=== PATIENT | female | born 1965 | race Caucasian/White ===

== ENCOUNTER 2016-11-14 08:46 | Day surgery (SDC) | payer MEDICAID ==
[2016-11-14] MEDS ORDERED: HYDROCODONE-APA1 TAB PO (10:44)
[2016-11-14] MEDS ORDERED: OMEPRAZOLE40 MG PO (10:44)
[2016-11-14] MEDS ORDERED: NEURONTIN 300300 MG PO (10:44)
[2016-11-14] MEDS ORDERED: EFFEXOR75 MG PO (10:45)
[2016-11-14] MEDS ORDERED: PRINIVIL10 MG PO (10:45)
[2016-11-14] MEDS ORDERED: PROVENTIL HFA6.7 GM INH (10:46)
[2016-11-14 10:49] VITALS: BP 123/74; BMI 26.0
[2016-11-14 11:47] LABS: HEMATOCRIT 36.8 % (36.0-48.0); HEMOGLOBIN 11.8 g/dL (12-16); MCH 30.6 pg (26.0-34.0); MCHC 32.1 g/dL (31.0-37.0); MCV 95.3 fL (80.0-100.0); MEAN PLATELET VOLUME 9.7 fL (7.4-10.4); RBC 3.86 10x6/uL (4.00-5.40); RDW 13.2 % (11.5-14.5); WBC 4.4 10x3/uL (4.8-10.8)
[2016-11-14 12:00] LABS: AMORPHOUS SEDIMENT <1+ /lpf (NONE SEEN); APPEARANCE HAZY (CLEAR); BILIRUBIN NEGATIVE (NEGATIVE); COLOR YELLOW (YELLOW); GLUCOSE NEGATIVE (NEGATIVE); KETONE NEGATIVE (NEGATIVE); LEUKOCYTE ESTERASE TRACE (NEGATIVE); NITRITE NEGATIVE (NEGATIVE); PROTEIN TRACE mg/dL (NEGATIVE); SPECIFIC GRAVITY 1.015 (1.005-1.020); UROBILINOGEN NORMAL (NORMAL)
[2016-11-14 12:01] LABS: WHITE CELLS - URINE 0-5 /hpf (0-5)
[2016-11-14 12:03] LABS: EPITHELIAL CELLS 0-5 /hpf (0-5); RED CELLS - URINE 0-5 /hpf (0-5)
[2016-11-14 12:04] LABS: BACTERIA FEW /hpf (NONE SEEN)
[2016-11-14 12:15] LABS: ALBUMIN 3.8 g/dL (3.4-5.0); ALKALINE PHOSPHATASE 78 U/L (46-116); ALT (SGPT) 24 U/L (10-68); BILIRUBIN - TOTAL 0.28 mg/dL (0.2-1.3); CALC OSMOLALITY 284 mosm/kg (275-300); CALCIUM 8.9 mg/dL (8.5-10.1); CARBON DIOXIDE 28.4 mmol/L (21.0-32.0); CHLORIDE - SERUM 105 mmol/L (98-107); CREATININE - SERUM 0.7 mg/dL (0.6-1.3); GLUCOSE 93 mg/dL (74-106); POTASSIUM - SERUM 4.2 mmol/L (3.5-5.1); PROTEIN - SERUM 6.9 g/dL (6.4-8.2); SODIUM 142 mmol/L (136-145); UREA NITROGEN 17 mg/dL (7-18); eGFR NON AFRICAN AMERICAN > 90 mL/min (90-120)
[2016-11-14 12:23] LABS: APTT 27.4 SECONDS (22.8-39.4); INR 0.86 (0.85-1.17); PROTIME 11.6 SECONDS (11.6-15.0)
--- NOTE | 2016-11-14 13:06 | NUR ---
OPA IN AIRAY ON ADMIT TO [facility]
--- NOTE | 2016-11-14 14:23 | NUR ---
1420-ESCORTED TO PERSONAL CAR, LEFT WITH FAMILY MEMBER DRIVING CAR.
--- NOTE | 2016-12-01 13:10 | OP ---
PATIENT NAME: TARIQ VALLES MEDICAL RECORD: [id number] :65 LOCATION:[facility] ADMISSION DATE: SURGEON: MARTELL ESCOBAR MD DATE OF OPERATION: 11/14/2016 PREOPERATIVE DIAGNOSES: Hoarseness, right true vocal cord lesion. SURGEON: Martell Escobar MD ANESTHESIA: General orotracheal. BLOOD LOSS: Less than 1 cc. SPECIMENS: Right true vocal cord lesion. COMPLICATIONS: None. DISPOSITION: Recovery stable. DESCRIPTION OF PROCEDURE: She is brought to the operating room and placed in supine position, sedated and intubated by anesthesia. The table was turned 90 degrees. A head drape was applied and she was positioned for endoscopy. She did not have any upper teeth. A plastic tooth guard was used. A Kleinsasser laryngoscope was used to examine the oropharynx, hypopharynx, vallecula, base of tongue, post-cricoid area and pyriform, there is no lesions were seen. The supraglottic larynx was all normal as well. She had obvious large lesion on the right true cord. The laryngoscope was placed into position, it was suspended on a Lewy and the microscope was brought in with a 400-mm lens and the area was examined. She had big floppy polypoid partially cystic lesion involving the right true cord almost the entire right true cord. The left cord could not be visualized, but with a suction, I was able to push it below the other cord or lift it up and the lesion went almost to the anterior commissure within about 1 mm and posterior all the way to the vocal process arytenoid with a cup forceps, grasped it and medialized the lesion and an upbiting scissors started posteriorly. I dissected about half of the lesion free from the cord. This allowed a little bit more traction posteriorly and then focused on the anterior commissure and just used some straight biting scissors and to divide it anteriorly about 1 mm behind the anterior commissure and then dissected off from anterior to posterior from there. It was removed and sent the specimen intact. There was no rupture of any cyst and an Afrin pledget was placed on the cord, looked really nice afterwards. Before and after pictures were taken and placed in the chart, Afrin pledget was removed. Counts were correct. The laryngoscope was taken out of suspension and the laryngoscope was removed and the plastic tooth guard was removed. She was awakened, extubated, and transported to recovery in good condition. No complications. TRANSINT:[id number] Voice Confirmation ID: [id number] DOCUMENT ID: [id number] OPERATIVE REPORT [id number] TARIQ VALLES ERIC MD at 1310 CC: [id number] DICTATION DATE: 11/14/16 1252 ACCOUNT RECEIVABLE CLERK: 11/14/16 2207 [facility] 11/14/[address] [address]
--- NOTE | 2016-12-01 13:10 | HP ---
PATIENT: TARIQ VALLES MEDICAL RECORD: [id number] ACCOUNT: [id number] LOCATION:[facility] : 65 ADMISSION DATE: 11/14/16 HISTORY AND PHYSICAL EXAMINATION Preoperative History and Physical HISTORY OF PRESENT ILLNESS: Ms. Valles is a 51-year-old female, who had an EGD, which she was noticed a large cyst-like lesion. She has had significant hoarseness for a long time. She was found on exam to have a large obstructing cyst on the right true vocal cord. She is being admitted for laryngoscopy and excision of the cyst. PAST MEDICAL HISTORY: Includes hypertension, reactive airway disease and reflux. PAST SURGICAL HISTORY: Includes back surgery, neck surgery, and tonsillectomy. SOCIAL HISTORY: She is a smoker. CURRENT MEDICATIONS: Hydrocodone, gabapentin, albuterol, Advair, Valium, and omeprazole. ALLERGIES: CODEINE AND AMOXICILLIN. PHYSICAL EXAMINATION: GENERAL: She is healthy-appearing, but she has [id number] hoarseness with a very gravelly voice. FACE: Normal and symmetric. No lesions. EYES: Sclerae and conjunctivae are normal. EARS: Canals and TMs are normal. NOSE: She does have some septal deviation, but she has also got some mainly of nasal valve collapse. ORAL CAVITY AND OROPHARYNX: Status post tonsillectomy. Palate is normal. No trismus. Tongue protrudes in the midline. No lesions. NECK: No masses or adenopathy. CHEST: Clear. CARDIOVASCULAR: Regular rate and rhythm, no murmur. EXTREMITIES: No clubbing, cyanosis or edema. Laryngoscopy reveals a large cystic polypoid lesion involving the entire right cord from the anterior commissure back to the vocal process arytenoid. It is large enough that it covers up the left cord and is lying on top of it. I cannot really see much of the left cord, just a small visible airway posteriorly. 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 PLAN: Microsuspension laryngoscopy and excision of vocal cord. TRANSINT:[id number] Voice Confirmation ID: [id number] DOCUMENT ID: [id number] HISTORY AND PHYSICAL [id number] TARIQ VALLES DEA KAPLAN MD at 1310 CC: [id number] DICTATION DATE: 11/13/16 0957 PARASITOLOGY TEACHER: 11/13/16 1036 [facility] 11/14/16 [place] [id number] [facility] [place] [id number]
== END 2016-11-14 14:20 | disposition home or self-care (01) ==
LOC: D.OPS 08:46
PROVIDERS: Anesthesiology
DX: R49.0 Dysphonia (principal); J38.3 Other diseases of vocal cords; I10 Essential (primary) hypertension; J45.909 Unspecified asthma, uncomplicated; K21.9 Gastro-esophageal reflux disease without esophagitis; F17.200 Nicotine dependence, unspecified, uncomplicated; Z79.891 Long term (current) use of opiate analgesic; Z79.899 Other long term (current) drug therapy; Z88.5 Allergy status to narcotic agent; Z88.0 Allergy status to penicillin

== ENCOUNTER 2020-12-01 19:04 | Emergency (ER) | payer MEDICARE, MEDICAID ==
[~2020-12-01] VITALS: Ht 170.2 cm; Wt 75.9 kg
[~2020-12-01 19:04] MED LIST: ACETAMINOPHEN500 M1 PO; ADVAIR 250-501 EAC1 INH; COREG6.25 MG; CYCLOBENZAPRINE10 MG PO; EFFEXOR75 MG PO; HYDROCODONE-APA1 TAB PO; IBUPROFEN800 MG PO; LIORESAL 10 MG10 MG PO; NEURONTIN 300300 MG PO; OMEPRAZOLE40 MG PO; PHENERGAN25 M1 PO; PRINIVIL10 MG PO; PROVENTIL HFA6.7 GM INH
[2020-12-01 19:14] VITALS: Ht 170.2 cm; Wt 75.9 kg
[2020-12-01] MEDS ORDERED: CLEOCIN HCL300 MG PO (19:29)
[2020-12-01 20:18] VITALS: BP 128/50
== END 2020-12-01 20:18 | disposition home or self-care (01) ==
LOC: D.ER 19:04
DX: J32.9 Chronic sinusitis, unspecified (principal); Z72.0 Tobacco use; J44.9 Chronic obstructive pulmonary disease, unspecified

== ENCOUNTER 2020-12-10 10:28 | Emergency (ER) | payer MEDICAID ==
[~2020-12-10] VITALS: Ht 170.2 cm; Wt 75.0 kg
[~2020-12-10 10:28] MED LIST changes: +CLEOCIN HCL300 MG PO
[2020-12-10 10:30] VITALS: Ht 170.2 cm; Wt 75.0 kg
[2020-12-10 11:25] LABS: BILIRUBIN NEGATIVE (NEGATIVE); KETONE NEGATIVE (NEGATIVE); NITRITE NEGATIVE (NEGATIVE); UROBILINOGEN NORMAL mg/dL (< 2); WHITE CELLS - URINE 1 HPF (0-4)
[2020-12-10 11:26] LABS: BACTERIA FEW HPF (NONE SEEN)
[2020-12-10 11:33] LABS: BASOPHILS 0.2 % (0-2); EOSINOPHILS 0.6 % (0-7); HEMATOCRIT 40.5 % (36.0-48.0); HEMOGLOBIN 13.5 g/dL (12-16); IMMATURE GRANULOCYTES 0.3 % (0-5); LYMPHOCYTE ABS# 1.31 10x3/uL (1.18-3.74); LYMPHOCYTES 13.6 % (15-50); MCH 32.4 pg (26.0-34.0); MCHC 33.3 g/dL (31.0-37.0); MCV 97.1 fL (80.0-100.0); MEAN PLATELET VOLUME 9.1 fL (7.4-10.4); MONOCYTES 7.2 % (2-11); NEUTROPHIL ABS# 7.51 10x3/uL (1.56-6.13); NEUTROPHILS 78.1 % (40-80); PLATELET COUNT 398 10x3/uL (130-400); RBC 4.17 10x6/uL (4.00-5.40); RDW 13.2 % (11.5-14.5); WBC 9.6 10x3/uL (4.8-10.8)
[2020-12-10 11:33] LABS: UDS - AMPHET POSITIVE QUAL (NEGATIVE); UDS - BARB NEGATIVE QUAL (NEGATIVE); UDS - BENZO POSITIVE QUAL (NEGATIVE); UDS - COCAINE NEGATIVE QUAL (NEGATIVE); UDS - OPIATE NEGATIVE QUAL (NEGATIVE); UDS - PCP NEGATIVE QUAL (NEGATIVE); UDS - THC POSITIVE QUAL (NEGATIVE)
[2020-12-10 11:51] LABS: CALC OSMOLALITY 282 mosm/kg (275-300); CALCIUM 9.2 mg/dL (8.5-10.1); CHLORIDE - SERUM 106 mmol/L (98-107); CREATININE - SERUM 0.9 mg/dL (0.6-1.3); GLUCOSE 102 mg/dL (74-106); POTASSIUM - SERUM 3.8 mmol/L (3.5-5.1); SODIUM 142 mmol/L (136-145); UREA NITROGEN 12 mg/dL (7-18); eGFR NON AFRICAN AMERICAN 69 mL/min (90-120)
[2020-12-10 11:59] LABS: APTT 26.1 SECONDS (22.8-39.4); INR 1.02 (0.85-1.17); PROTIME 12.4 SECONDS (11.6-15.0)
[2020-12-10 12:01] LABS: ALBUMIN 3.8 g/dL (3.4-5.0); ALKALINE PHOSPHATASE 86 U/L (30-120); ALT (SGPT) 32 U/L (10-68); BILIRUBIN - TOTAL 0.28 mg/dL (0.2-1.3); CKMB 2.1 U/L (0.0-3.6); CREATINE KINASE 175 UL (21-215); MAGNESIUM - SERUM 2.5 mg/dL (1.8-2.4); PROTEIN - SERUM 7.6 g/dL (6.4-8.2)
[2020-12-10 12:04] LABS: TROPONIN-I < 0.017 ng/mL (0.000-0.060)
[2020-12-10 21:20] VITALS: BP 128/81
== END 2020-12-10 21:21 | disposition home or self-care (01) ==
LOC: D.ER 10:28
PROVIDERS: Emergency Medicine
DX: R41.82 Altered mental status, unspecified (principal); F19.921 Other psychoactive substance use, unspecified with intoxication with delirium; J44.9 Chronic obstructive pulmonary disease, unspecified

== ENCOUNTER 2020-12-17 00:58 | Emergency (ER) | payer OTHER, MEDICARE ==
[~2020-12-17] VITALS: Ht 170.2 cm; Wt 75.9 kg
[2020-12-17 01:02] VITALS: BP 154/71; Ht 170.2 cm; Wt 75.9 kg
[2020-12-17] MEDS ORDERED: SPIRIVA18 MCG INH (01:06)
== END 2020-12-17 03:00 | disposition home or self-care (01) ==
LOC: D.ER 00:58
DX: S20.211A Contusion of right front wall of thorax, initial encounter (principal); S09.90XA Unspecified injury of head, initial encounter; J44.9 Chronic obstructive pulmonary disease, unspecified; Z72.0 Tobacco use; W19.XXXA Unspecified fall, initial encounter; Y93.9 Activity, unspecified; Y92.9 Unspecified place or not applicable; R07.89 Other chest pain; M54.9 Dorsalgia, unspecified